=== PATIENT | female | born 1960 | race African-American/Black ===

== ENCOUNTER 2021-06-08 18:00 | Emergency (ER) | payer MEDICAID ==
[~2021-06-08] VITALS: Ht 170.2 cm; Wt 65.0 kg
[2021-06-08 18:03] VITALS: BP 162/76
[2021-06-08] MEDS ORDERED: NAP5EC MT (19:56)
[2021-06-08] MEDS ORDERED: HYDROCODONE/ACETAMINOPHEN 10/325MG TABLET PO ONE (20:00)
== END 2021-06-08 21:36 | disposition home or self-care (01) ==
LOC: ER 18:00
DX: S42.001A Fracture of unspecified part of right clavicle, initial encounter for closed fracture (principal); M54.2 Cervicalgia; R10.2 Pelvic and perineal pain; R00.0 Tachycardia, unspecified; F14.10 Cocaine abuse, uncomplicated; V49.59XA Passenger injured in collision with other motor vehicles in traffic accident, initial encounter; Y93.89 Activity, other specified; Y92.488 Other paved roadways as the place of occurrence of the external cause
CPT/HCPCS: 71045; 72170; 73030; 99284; A4565

== ENCOUNTER 2022-10-17 18:51 | Emergency (ER) | payer MEDICAID ==
[~2022-10-17] VITALS: Ht 188 cm; Wt 68.0 kg
[~2022-10-17 18:51] MED LIST: NAP5EC MT
[2022-10-17 19:23] VITALS: BP 38/83
== END 2022-10-17 23:30 | disposition left against medical advice (07) ==
LOC: ER 18:51
DX: Z53.21 Procedure and treatment not carried out due to patient leaving prior to being seen by health care provider (principal)
CPT/HCPCS: 99281

== ENCOUNTER 2022-10-22 17:04 | Emergency (ER) | payer MEDICAID ==
[~2022-10-22] VITALS: Ht 188 cm; Wt 63.0 kg
[2022-10-22 17:08] VITALS: BP 140/73
== END 2022-10-22 19:00 | disposition home or self-care (01) ==
LOC: ER 17:04
DX: N81.4 Uterovaginal prolapse, unspecified (principal)
CPT/HCPCS: 99281

== ENCOUNTER 2023-06-28 12:18 | Emergency (ER) | payer MEDICAID ==
[~2023-06-28] VITALS: Ht 182.9 cm; Wt 63.0 kg
[2023-06-28 12:30] VITALS: O2SAT 97
[2023-06-28] MEDS ORDERED: IBUPROFEN 800MG TABLET PO ONE (13:00)
[2023-06-28] MEDS: IBUPROFEN 400MG TABLET PO NR ×2 (13:30→15:08)
[2023-06-28] MEDS ORDERED: LEVO750T68 MT (14:24)
[2023-06-28] MEDS ORDERED: CEFTRIAXONE SODIUM 1 G/VIAL IM NR (14:30)
[2023-06-28] MEDS ORDERED: AZITHROMYCIN 500 MG TABLET PO ONE (14:30)
[2023-06-28 15:19] LABS: HEMATOCRIT. 44.7 % (36.0-48.0); HEMOGLOBIN. 14.5 g/dL (12.0-16.0); MEAN CORPUSCULAR HEMOGLOBIN 27.3 pg (28.0-32.0); MEAN CORPUSCULAR HGB CONC 32.4 g/dL (31.0-37.0); MEAN CORPUSCULAR VOLUME 84.4 fL (81.0-99.0); MEAN PLATELET VOLUME 8.1 fl (7.4-10.4); PLATELET 240 x1000/uL (130-400); WHITE BLOOD COUNT 22.5 x1000/uL (4.5-11.0)
[2023-06-28 15:22] LABS: DIFFERENTIAL COMMENT 1
[2023-06-28 15:36] VITALS: BP 145/98; PULSE 92; RESP 18; TEMP 100
[2023-06-28 16:03] LABS: ALANINE AMINOTRANSFERASE 21 IU/L (10-49); ALBUMIN 3.8 g/dL (3.2-4.8); ASPARTATE AMINOTRANSFERASE 36 IU/L (<34); BILIRUBIN TOTAL 0.7 mg/dL (0.1-1.0); CALCIUM 8.8 mg/dL (8.7-10.4); CARBON DIOXIDE 23 mEq/L (21-32); CHLORIDE 100 mEq/L (98-107); CREATININE 1.2 mg/dL (0.6-1.0); GLUCOSE 107 mg/dL (70-105); POTASSIUM 3.9 mEq/L (3.5-5.1); PROTEIN TOTAL 7.9 g/dL (6.0-8.3); SODIUM 134 mEq/L (136-145); UREA NITROGEN BLOOD 22 mg/dL (9-23)
[2023-06-28 16:18] LABS: ANISOCYTOSIS 1+; PLATELET ESTIMATE NORMAL
== END 2023-06-28 15:46 | disposition home or self-care (01) ==
LOC: ER 12:40
DX: J18.9 Pneumonia, unspecified organism (principal)
CPT/HCPCS: 80053; 85025; 36415; 71045; 96372; 99284; J0696; Z7610